=== PATIENT | female | born 1940 | race Caucasian/White ===

== ENCOUNTER 2018-01-11 09:15 | Outpatient (CLI) | payer MEDICARE, SELFPAY ==
--- NOTE | 2018-01-11 10:01 | PC.NURSE ---
PATIENT WAS INSTRUCTED TO RETURN TO [facility] TODAY FOR WOUND RECHECK AND DRESSING CHANGE AFTER LACERATION REPAIR IN ED ON SATURDAY. OLD DRESSING OF BANDAIDS REMOVED. WOUNDS TO LEFT 4TH AND LEFT 5 TH FINGER CLEANED OF OLD DRIED BLOOD WITH HIBICLENS AND STERLIE H2O. WOUNDS THEN DRIED AND REDRESSED WITH TELFA AND MARÍA AND FINGER SPLINT REAPPLIED TO LEFT 4 TH FINGER. INSTRUCTED TO CHANGE DRESSING DAILY AND FOLLOW UP WITH PCP FOR ANY SIGNS OF INFECTION AND SUTURE REMOVAL. VERBALIZED UNDERSTANDING.
== END 2018-01-11 10:06 | disposition home or self-care (01) ==
LOC: UTC.OUT 09:20
PROVIDERS: PCP Internal Medicine; Visit Provider Nurse Practitioner
DX: S61.215D Laceration without foreign body of left ring finger without damage to nail, subsequent encounter (principal); S61.217D Laceration without foreign body of left little finger without damage to nail, subsequent encounter

== ENCOUNTER → 2023-01-02 08:28 | Outpatient (CLI) | payer MEDICARE, SELFPAY ==
[2023-01-02 08:39] LABS: Microscopic, Urine URINE MICROSCOPIC (MICROSCOPIC)
[2023-01-02 09:04] LABS: Basophils # 0.1 K/mm3 (0-0.2); Basophils % 1.2 % (0.1-2.0); Eosinophils # 0.1 K/mm3 (0.0-0.4); Eosinophils % 2.7 % (0.1-12.0); Hematocrit 38.8 % (37.0-47.0); Hemoglobin 12.4 g/dL (12.2-16.2); Lymphocytes # 1.7 K/mm3 (0.7-4.5); Lymphocytes % 37.3 % (10-50); Mean Corpuscular HGB Conc 31.9 g/dL (31.8-35.4); Mean Platelet Volume 7.6 fl (7.4-10.4); Monocytes # 0.4 K/mm3 (0.1-1.0); Monocytes % 9.7 % (1.7-9.3); Neutrophils # 2.3 K/mm3 (1.8-7.8); Neutrophils % 49.1 % (37.0-80.0); Platelet Count 226 K/mm3 (142-424); Red Blood Count 4.13 M/mm3 (4.20-5.40); Red Cell Distribution Width 13.5 % (11.5-17.5); White Blood Count 4.6 K/mm3 (4.8-10.8)
[2023-01-02 09:12] LABS: Appearance,Urine CLEAR (Clear); Bilirubin,Urine Negative (Negative); Blood, Urine 2+ (Negative); Color,Urine YELLOW (Yellow); Glucose,Urine (UA) Negative (Negative); Ketones,Urine Negative (Negative); Leukocyte Esterase,Urine 1+ (Negative); Nitrate,Urine Negative (Negative); Protein,Urine Negative (Negative); Specific Gravity, Urine >= 1.030 (1.005-1.030); Urobilinogen,Urine 0.2 EU/dl (0.2)
[2023-01-02 09:49] LABS: Alanine Aminotransferase 14 U/L (12-78); Albumin Level 3.7 g/dl (3.5-5.0); Albumin/Globulin Ratio 1.5 (1.1-1.8); Alkaline Phosphatase 69 U/L (38-126); Aspartate Amino Transferase 20 U/L (14-36); Bilirubin,Total 0.4 mg/dl (0.2-1.3); Blood Urea Nitrogen 19 mg/dl (7-17); Calcium 8.7 mg/dl (8.4-10.2); Carbon Dioxide 25 mmol/L (22.0-30.0); Chloride 107 mmol/L (98-107); Estimated Glomerular Filt Rate 60 ml/min (>60); GFR (African American) 73 ML/MIN (>60); Globulin 2.5 g/dL (1.3-3.2); Glucose 97 mg/dl (74-100); Sodium 138 mmol/L (136-145); Total Protein,Serum 6.2 g/dl (6.3-8.2)
[2023-01-02 09:57] LABS: Bacteria,Urine 1+ /lpf
[2023-01-02 10:17] LABS: Thyroid Stimulating Hormone 6.01 uIU/mL (0.465-4.68)
== END ==
PROVIDERS: PCP Nurse Practitioner Family; Visit Provider Nurse Practitioner Family
DX: I10 Essential (primary) hypertension (principal); N39.0 Urinary tract infection, site not specified
CPT/HCPCS: 36415; 80053; 81001; 84443; 85025; 87086

== ENCOUNTER 2024-01-29 16:05 | Emergency (ER) | payer MEDICARE, SELFPAY ==
[2024-01-29 16:05] VITALS: BP 152/86; PULSE 72; RESP 18; TEMP 36.7; O2SAT 96; BMI 31.8
--- NOTE | 2024-01-29 17:18 | XR_ITS ---
PROCEDURE INFORMATION: Exam: XR Chest Exam date and time: 01/29/2024 5:28 PM Age: 83 years old Clinical indication: Cough; Additional info: Prdcuctive cough worsening 1 wk TECHNIQUE: Imaging protocol: Radiologic exam of the chest. Views: 2 views. COMPARISON: No relevant prior studies available. FINDINGS: Lungs: A focal 2.5 cm opacity is seen overlying the posterior heart just above the hemidiaphragm on the lateral view only. Lungs are otherwise clear. Pleural spaces: Unremarkable. No pleural effusion. No pneumothorax. Heart/Mediastinum: Unremarkable. No cardiomegaly. Bones/joints: Unremarkable. IMPRESSION: Focal opacity over the posterior heart above the hemidiaphragm on lateral view. This is of uncertain etiology or significance. Findings might reflect summation shadows but developing infiltrate or even a developing nodule or mass cannot be entirely excluded. Advise further assessment with nonemergent chest CT.
--- NOTE | 2024-01-29 17:22 | HMH.EDGENADL ---
Discharge Plan Disposition Patient Disposition: Home, Self-Care Prescriptions Prescriptions: New amoxicillin-pot clavulanate 875-125 mg tablet 1 tab PO BID 5 Days Qty: 10 0RF No Action cholecalciferol (vitamin D3) 25 mcg (1,000 unit) capsule 25 mcg PO DAILY Premarin 0.625 mg tablet 0.625 mg PO DAILY estradiol 0.01 % (0.1 mg/gram) cream 1 appful vaginal DAILY Qty: 42.5 2RF Rx Instructions: insert a blueberry sized amount into the vagina twice weekly pramipexole 0.5 mg tablet 0.5 mg PO TID Patient Comments: TAKE 1 TABLET BY MOUTH THREE TIMES DAILY azithromycin [Zithromax Z-[place]] 250 mg tablet See Rx Instructions PO .COMPLEX Qty: 6 0RF Rx Instructions: For 250 mg dose pack: take 500 mg today (day 1), then 250 mg for 4 days (days 2-5) PO benzonatate 100 mg capsule 100 mg PO BID PRN (Reason: cough) Qty: 20 0RF fluticasone propionate [Allergy Relief (fluticasone)] 50 mcg/actuation spray,suspension 1 spray intranasal DAILY Qty: 16 2RF Rx Instructions: administer into each nostril Referrals Follow up/Referrals: Ricarda Santamaria APRN [Primary Care Provider] - See instructions Activity Restrictions/Add. Instructions Additional Instructions/Restrictions: Follow-up with your family doctor regarding this visit to the emergency department to assure improvement. Talk to them about 2 view chest x-ray versus CT to reevaluate lung opacity after finishing your antibiotics. Clinical Impressions Clinical Impression: Pneumonia Discharge ED Provider: Rocco Lindsey General Adult HPI General Chief complaint: Upper Respiratory Infection Stated complaint: cough, sandoval SOA, Time Seen by Provider: 01/29/24 16:53 Mode of Arrival: Ambulatory Source of Information: Patient Limitations: No Limitations Description of Symptoms (Recalled from ER Triage Doc. by RN): COUGH,CONGESTION,SOA History of Present Illness HPI narrative: Please note that above description of symptoms, in this electronic medical record under categorization of recalled from ER triage doctor by RN are reflective of an initial nursing assessment, however, is not reflective of my full history and physical exam that was personally taken and clarified. Consequentially, this preceding description of symptoms, which may include the patient's categorized chief complaint in the EMR, do not reflect my personal clinical impression, and the ultimate description of history of present illness and patient stated complaints should be deferred to this section of the note. Unless stated otherwise or congruent with this section of the note, additional signs, symptoms, or incongruence should be interpreted as inaccurate with my clinical impression. Related Data Home Medications Medication Instructions Recorded Confirmed cholecalciferol (vitamin D3) 25 25 mcg PO DAILY 05/16/22 01/28/24 mcg (1,000 unit) capsule conjugated estrogens 0.625 mg 0.625 mg PO DAILY 01/23/23 01/28/24 tablet (Premarin) pramipexole 0.5 mg tablet 0.5 mg PO TID 01/28/24 01/28/24 Previous Rx's Medication Instructions Recorded estradiol 0.01% (0.1 mg/gram) 1 appful vaginal DAILY #42.5 grams 10/31/23 vaginal cream azithromycin 250 mg tablet See Rx Instructions PO .COMPLEX #6 01/28/24 (Zithromax Z-[place]) tabs benzonatate 100 mg capsule 100 mg PO BID PRN cough #20 caps 01/28/24 fluticasone propionate 50 1 spray intranasal DAILY #16 grams 01/28/24 mcg/actuation nasal spray,suspension (Allergy Relief (fluticasone)) amoxicillin 875 mg-potassium 1 tab PO BID 5 days #10 tabs 01/29/24 clavulanate 125 mg tablet Allergies Allergy/AdvReac Type Severity Reaction Status Date / Time amoxicillin AdvReac Intermediate nausea Verified 01/28/24 11:21 [facility] Disclaimer: The information contained in this section may have been updated after the patient was seen, as this information can be updated by other users. Medical History History of hypertension Pelvic organ prolapse quantification stage 3 cystocele Surgical History H/O total hysterectomy Family History Other Heart attack Social History Smoking Status: Never smoker second hand exposure: No alcohol intake: never substance use type: denies use current occupational status: retired Travel in the last 8 weeks: None housing: house caffeine: No ROS Obtained: Yes All systems reviewed & no additional complaints except as documented Physical Exam General General appearance: alert and in no apparent distress Head Head exam: atraumatic and normocephalic Eye Eye exam: Present normal appearance, PERRL and EOMI ENT ENT exam: Present mucous membranes moist Neck Neck exam: Present normal inspection, full ROM and trachea midline Respiratory Respiratory exam: Absent respiratory distress, wheezes, stridor, accessory muscle use or prolonged expiratory phase Cardiovascular Cardiovascular exam: Present normal rhythm Abdominal Exam Abdominal exam: Present soft; Absent distention, tenderness, guarding, rebound or rigidity Extremities Exam Extremities exam: Absent edema Neurological Exam Neurological exam: Present alert, oriented X3, CN II-XII intact and normal gait; Absent motor sensory deficit Skin Skin exam: Present warm and dry; Absent diaphoresis or erythema Medical Decision Making Medical Records Medical records reviewed: Yes I reviewed the patient's medical records. Sp Inquiry Pt receiving controlled substance: No Sp was queried for this patient: No Vital Signs: 01/29/24 16:05 Temperature 98.1 F Temperature Source Oral Pulse Rate [Right] 72 Respiratory Rate 18 Blood Pressure [Right Arm] 152/86 H Blood Pressure Mean [Right Arm] 108 02 Sat by Pulse Oximetry 96 Oxygen Delivery Method Room Air Orders (Tests/Meds): ED MEDICATIONS Discontinued Medications Generic Name Dose Route Start Last Admin Trade Name Sinanq PRN Reason Stop Dose Admin Amoxicillin/Clavulanate Potassium 1 each 01/29/24 18:08 01/29/24 18:15 Amoxicillin/Clavulanate Potassium 875/125mg Tablet PO 01/29/24 18:09 1 each ONCE ONE Administration Dexamethasone 10 mg 01/29/24 17:18 01/29/24 17:42 Dexamethasone 4mg Tablet PO 01/29/24 17:19 10 mg ONCE ONE Administration Loratadine 10 mg 01/29/24 17:19 01/29/24 17:42 Loratadine 10mg Tablet PO 01/29/24 17:20 10 mg ONCE ONE Administration ORDERS Category Date Time Status CXR 2 view (NOT portable) [XR chest 2V] Stat Exams 01/29/24 17:18 Completed Medical Decision Narrative: This is an 83-year-old history of hypertension, no other relevant history presenting with nonproductive cough. Patient states that she has had a nonproductive cough for about the last week, it started getting worse yesterday, went to the urgent care. They gave her azithromycin, steroid nasal spray, Tessalon Perles, these have not helped. Patient states that cough feels like it needs to be productive, but has not been able to cough anything up. No fevers or chills, nausea or vomiting, but she does have intermittent shortness of breath secondary to coughing. States that it feels like it is getting worse. istory was obtained via conversation with patient. On arrival, patient hemodynamically stable, alert, oriented x4, appropriate, GCS 15, moving all extremities spontaneously, pupils equal and reactive to light. Full physical exam performed and significant for 83-year-old female she is in no acute distress, but she is intermittently coughing. Lungs are clear to auscultation bilaterally anterior and posteriorly in upper and lower ahumada. Differential includes bronchitis, pneumonia, pneumothorax, among others. Patient was given Decadron and antihistamine p.o. for symptomatic management and correction of underlying abnormalities. Workup independently interpreted and significant for concern for right lower lobe consolidation on chest x-ray. Radiology contacted and said they were concerned for mass, this was relayed to patient. See radiology read for full review of final results. Patient given Augmentin. On reevaluation, patient feeling much better, not coughing. Because patient at baseline without signs or symptoms of clinical decompensation, deemed appropriate for discharge. Results were relayed to patient who voiced understanding and were agreeable to outpatient management and follow up. I discussed my clinical impression with patient and answered all questions. At this time, the evidence for any other entities in the differential is insufficient to warrant any further testing or ED observation. This was explained as well. Advisory was given that persistent or worsening symptoms require further evaluation. I confirmed the understanding of this discussion. Sent home with Augmentin and primary care follow-up. Critical Care Critical Care Time Critical Care Time: No
[2024-01-29] MEDS: DEXAMETHASONE 4MG TABLET 10 MG PO (17:42)
[2024-01-29] MEDS: LORATADINE 10MG TABLET 10 MG PO (17:42)
[2024-01-29] MEDS: AMOXICILLIN/CLAVULANATE POTASSIUM 875/125MG TABLET 1 EACH PO (18:15)
--- NOTE | 2024-01-29 18:33 | PC.NURSE ---
DR RESTREPO AT BEDSIDE
[2024-01-29 18:54] VITALS: BP 153/70; PULSE 76; RESP 18; TEMP 36.7; O2SAT 95
== END 2024-01-29 18:55 | disposition home or self-care (01) ==
PROVIDERS: Emergency Provider Emergency Medicine; PCP Nurse Practitioner Family
DX: J18.9 Pneumonia, unspecified organism (principal); R06.02 Shortness of breath; R05.9 Cough, unspecified
CPT/HCPCS: 71046; 99283

== ENCOUNTER 2024-02-19 06:17 | Outpatient (CLI) | payer MEDICARE, SELFPAY ==
--- NOTE | 2024-02-19 | CT_ITS ---
FINAL REPORT TECHNIQUE: Axial images were obtained from the lung apex to the mid abdomen by computed tomography. Coronal reformatted images were obtained. This study was performed with techniques to keep radiation doses as low as reasonably achievable, (ALARA). Individualized dose reduction techniques using automated exposure control or adjustment of mA and/or kV according to the patient''s size were employed. CLINICAL HISTORY: .abnormal cxr, cough COMPARISON: Chest x-ray 01/29/2024 report only, no images available FINDINGS: There are several borderline sized mediastinal nodes. No mediastinal mass identified. No axillary mass is seen.There is no pericardial or pleural effusion. Mild scarring is noted. There is a calcified granuloma in the right lung base. No pulmonary mass or suspicious nodule is identified. No localized pulmonary inflammatory process is noted. An opacity was noted in the lower thorax on the prior report; however, no mass is identified in the lower thorax on today's study. The chest wall is intact.Limited images of the upper abdomen demonstrate a partially imaged mild left hydronephrosis. IMPRESSION: No mass or localized inflammatory process. Mild left hydronephrosis. Reviewed, Interpreted and Dictated by Chicho Uribe III, MD Transcribed by Michelle Garcia Authenticated and [facility]
[2024-02-19 07:45] LABS: Basophils % 0.9 % (0.1-2.0); Eosinophils # 0.1 K/mm3 (0.0-0.4); Eosinophils % 3.1 % (0.1-12.0); Hematocrit 36.3 % (37.0-47.0); Hemoglobin 11.7 g/dL (12.2-16.2); Lymphocytes # 1.5 K/mm3 (0.7-4.5); Lymphocytes % 36.8 % (10-50); Mean Corpuscular HGB Conc 32.1 g/dL (31.8-35.4); Mean Corpuscular Hemoglobin 30.7 pg (27.0-31.2); Mean Corpuscular Volume 95.5 fl (81-99); Mean Platelet Volume 8.6 fl (7.4-10.4); Monocytes # 0.5 K/mm3 (0.1-1.0); Monocytes % 11.8 % (1.7-9.3); Neutrophils # 1.9 K/mm3 (1.8-7.8); Neutrophils % 47.3 % (37.0-80.0); Platelet Count 299 K/mm3 (142-424); Red Cell Distribution Width 13.8 % (11.5-17.5); White Blood Count 4.1 K/mm3 (4.8-10.8)
[2024-02-19 08:19] LABS: Alanine Aminotransferase 14 U/L (12-78); Albumin Level 3.3 g/dl (3.5-5.0); Albumin/Globulin Ratio 1.3 (1.1-1.8); Alkaline Phosphatase 81 U/L (38-126); Anion Gap 10.4 mEq/L (5-15); Aspartate Amino Transferase 20 U/L (14-36); Bilirubin,Total 0.4 mg/dl (0.2-1.3); Blood Urea Nitrogen 17 mg/dl (7-17); Calcium 9.2 mg/dl (8.4-10.2); Carbon Dioxide 26 mmol/L (22.0-30.0); Chloride 106 mmol/L (98-107); Estimated Glomerular Filt Rate 69 ml/min (>60); GFR (African American) 83 ML/MIN (>60); Globulin 2.5 g/dL (1.3-3.2); Glucose 93 mg/dl (74-100); Potassium 4.4 mmoL/L (3.5-5.1); Sodium 138 mmol/L (136-145); Total Protein,Serum 5.8 g/dl (6.3-8.2)
== END 2024-02-19 23:59 | disposition home or self-care (01) ==
PROVIDERS: PCP Nurse Practitioner Family; Visit Provider Nurse Practitioner Family
DX: R93.89 Abnormal findings on diagnostic imaging of other specified body structures (principal); R05.3 Chronic cough
CPT/HCPCS: 36415; 71250; 80053; 85025

== ENCOUNTER 2024-02-26 14:04 | Outpatient (CLI) | payer MEDICARE, SELFPAY ==
--- NOTE | 2024-02-26 14:09 | US_ITS ---
FINAL REPORT CLINICAL HISTORY: HYDRONEPHROSIS OF LT KIDNEY FINDINGS: The right kidney measures 10.5 cm in length. It is normal in echogenicity. There is no hydronephrosis. There are anechoic structures in the right kidney, largest measures 1.9 cm probably due to benign cysts. The left kidney measures 10.9 cm in length. It is normal in echogenicity. There is mild to moderate left hydronephrosis. The spleen is unremarkable. IMPRESSION: Right renal cysts. [id number] left hydronephrosis. Reviewed, Interpreted and Dictated by Geovanni Hill MD Transcribed by Oxnaa Painter Authenticated and [facility]
== END 2024-02-26 23:59 | disposition home or self-care (01) ==
LOC: RAD 14:05
PROVIDERS: PCP Nurse Practitioner Family; Visit Provider Nurse Practitioner Family
DX: N13.30 Unspecified hydronephrosis (principal)
CPT/HCPCS: 76770

== ENCOUNTER 2024-04-06 16:35 | Outpatient (CLI) | payer MEDICARE, SELFPAY ==
[2024-04-06 16:26] LABS: Microscopic, Urine URINE MICROSCOPIC (MICROSCOPIC)
[2024-04-06 17:43] LABS: Appearance,Urine CLEAR (Clear); Bilirubin,Urine Negative (Negative); Blood, Urine TRACE-I (Negative); Color,Urine YELLOW (Yellow); Glucose,Urine (UA) Negative (Negative); Ketones,Urine Negative (Negative); Leukocyte Esterase,Urine 1+ (Negative); Nitrate,Urine Negative (Negative); PH,Urine 5.5 (5.0-8.5); Protein,Urine Negative (Negative); Specific Gravity, Urine 1.025 (1.005-1.030); Urobilinogen,Urine 0.2 EU/dl (0.2)
[2024-04-06 18:25] LABS: Squamous Epithelial Cell,Urine Occasional #/hpf (0-5); WBC,Urine Occasional #/hpf (0-3)
[2024-04-11 19:08] LABS: Atopobium vaginae Low - 0 Score (.); BVAB2 Low - 0 Score (.); Candida albicans NAA Negative (Negative); Candida glabrata Negative (Negative); Chlamydia Trachomatis NAA Negative (Negative); HSV 1 NAA Negative (Negative); HSV 2 NAA Negative (Negative); Megasphaera 1 Low - 0 Score (.); Neisseria gonorrhoeae NAA Negative (Negative); Trich vag NAA Negative (Negative)
== END 2024-04-06 23:59 | disposition home or self-care (01) ==
LOC: LAB.DROPOF 16:36
PROVIDERS: PCP Urology; Visit Provider Urology
DX: N39.3 Stress incontinence (female) (male) (principal); N89.8 Other specified noninflammatory disorders of vagina
CPT/HCPCS: 81001; 87086; 87491; 87529; 87591; 87661; 87798; 87801

== ENCOUNTER 2024-04-22 09:06 | Outpatient (CLI) | payer MEDICARE, SELFPAY ==
--- NOTE | 2024-04-22 09:06 | CT_ITS ---
FINAL REPORT TECHNIQUE: Pre-and postcontrast axial imaging of the abdomen and pelvis was obtained.This study was performed with techniques to keep radiation doses as low as reasonably achievable, (ALARA). Individualized dose reduction technique using automated exposure control or adjustment of mA and/or kV according to the patient's size were employed. CLINICAL HISTORY: hematuria FINDINGS: The lung bases are clear. The liver is homogeneous. The gallbladder is present. The spleen, adrenal glands, and pancreas are unremarkable. There are multiple left parapelvic renal cysts. There is a cortical cyst in the right kidney. No solid mass is identified. On precontrast imaging, no renal stones are identified. Abdominal GI tract is unremarkable. There is no lymphadenopathy or ascites. There is no evidence of small-bowel obstruction or focal small bowel wall thickening. The appendix is not visualized but there are no secondary findings to suggest appendicitis. The uterus is absent. Pessary device is noted. There is no lymphadenopathy or ascites. No acute osseous abnormalities identified. IMPRESSION: No stone or solid renal mass. Bilateral renal cysts. Reviewed, Interpreted and Dictated by Shelby Mathew MD Transcribed by Oxana Painter Authenticated and [facility]
[2024-04-22 09:41] LABS: Blood Urea Nitrogen 16 mg/dl (7-17); Estimated Glomerular Filt Rate 69 ml/min (>60); GFR (African American) 83 ML/MIN (>60)
== END 2024-04-22 23:59 | disposition home or self-care (01) ==
LOC: RAD 09:06
PROVIDERS: PCP Nurse Practitioner Family; Visit Provider Urology
DX: R31.9 Hematuria, unspecified (principal)
CPT/HCPCS: 36415; 74178; 82565; 84520; Q9967

== ENCOUNTER 2024-04-27 11:01 | Outpatient (CLI) | payer MEDICARE, SELFPAY ==
[2024-04-27 15:44] LABS: Microscopic, Urine URINE MICROSCOPIC (MICROSCOPIC)
[2024-04-27 16:01] LABS: Appearance,Urine TURBID (Clear); Bilirubin,Urine Negative (Negative); Blood, Urine TRACE-I (Negative); Color,Urine YELLOW (Yellow); Glucose,Urine (UA) Negative (Negative); Ketones,Urine Negative (Negative); Leukocyte Esterase,Urine Negative (Negative); Nitrate,Urine Negative (Negative); PH,Urine 5.5 (5.0-8.5); Protein,Urine Negative (Negative); Specific Gravity, Urine 1.025 (1.005-1.030); Urobilinogen,Urine 0.2 EU/dl (0.2)
[2024-04-27 16:32] LABS: Bacteria,Urine 4+ /lpf; Calcium Oxalate Crystals,Urine 1+ /lpf; RBC,Urine Occasional #/hpf (0-3); WBC,Urine Occasional #/hpf (0-3)
== END 2024-04-27 23:59 | disposition home or self-care (01) ==
LOC: LAB.DROPOF 04-28 11:02
PROVIDERS: PCP Urology; Visit Provider Urology
DX: R31.9 Hematuria, unspecified (principal)
CPT/HCPCS: 81001; 87086

== ENCOUNTER 2024-06-04 15:18 | Outpatient (CLI) | payer MEDICARE, SELFPAY ==
--- NOTE | 2024-06-04 15:24 | XR_ITS ---
FINAL REPORT CLINICAL HISTORY: Acute left knee pain FINDINGS: LEFT KNEE 3 views were obtained. There is no acute fracture or dislocation. There is chondrocalcinosis. There is sharpening of the tibial spine. A small osteophyte is seen along the undersurface of the patella. A calcification along the posterior aspect of the joint capsule is probably dystrophic. IMPRESSION: Degenerative changes with no acute bony abnormality. Calcification along the posterior aspect of the joint capsule is probably dystrophic. No prior images are available for comparison. Consider CT or MRI for further evaluation. Reviewed, Interpreted and Dictated by Geovanni Hill MD Transcribed by Meena Clifton Authenticated and . [facility]
== END 2024-06-04 23:59 | disposition home or self-care (01) ==
LOC: RAD 15:20
PROVIDERS: PCP Internal Medicine Adolescent Medicine; Visit Provider Nurse Practitioner Family
DX: M25.562 Pain in left knee (principal)
CPT/HCPCS: 73562

== ENCOUNTER 2024-06-29 15:18 | Outpatient (CLI) | payer MEDICARE, SELFPAY ==
--- NOTE | 2024-06-29 | MR_ITS ---
FINAL REPORT CLINICAL HISTORY: POSTERIOR KNEE PAIN COMPARISON: None FINDINGS: Articular cartilage: There is mild diffuse thinning of the articular cartilage without evidence of a focal osteochondral defect. Marrow signal: There is a benign cyst in the subcortical medial tibial metaphysis. There is an insertional cyst in the proximal tibia near the PCL attachment. Joint fluid: Small with a moderate-sized Bakers cyst. Menisci: There is a moderate oblique tear of the posterior horn of the medial meniscus. Lateral meniscus is intact. Ligaments: Collateral and cruciate ligaments intact No abnormal enhancement is noted after contrast administration. IMPRESSION: Moderate oblique tear of the posterior horn of the medial meniscus. Lateral meniscus is intact. Mild diffuse thinning of the articular cartilage without a focal defect. Small joint effusion with a moderate-sized Elder's cyst. Reviewed, Interpreted and Dictated by Quyen Patel MD Transcribed by Noemi Bishop Authenticated and [facility]
[2024-06-29 15:50] LABS: Blood Urea Nitrogen 21 mg/dl (7-17); Estimated Glomerular Filt Rate 36 ml/min (>60); GFR (African American) 43 ML/MIN (>60)
[2024-06-29] MEDS: SODIUM CHLORIDE 0.9% 10ML SYR (RAD ONLY) 10 ML IV (18:10)
[2024-06-29] MEDS: GADOTERIDOL INJ 10ML SYRINGE 10 ML IV (18:10)
== END 2024-06-29 23:59 | disposition home or self-care (01) ==
LOC: RAD 15:18
PROVIDERS: PCP Internal Medicine Adolescent Medicine; Visit Provider Internal Medicine Adolescent Medicine
DX: M25.562 Pain in left knee (principal)
CPT/HCPCS: 36415; 73723; 82565; 84520; A9576

== ENCOUNTER 2024-07-14 08:00 | Outpatient (RCR) | payer MEDICARE, SELFPAY ==
--- NOTE | 2024-07-08 10:26 | HMH.PTOPEV ---
PT Outpatient Evaluation Rehab PT Outpatient Evaluation Start: 07/08/24 09:08 Freq: Status: Active Protocol: Document 07/08/24 10:07 GABY (Rec: 07/08/24 10:26 CORNELLHECTOR [id number]) E-signed By Andrei Pearce, PT Outpatient Therapy Subjective History Subjective History Patient is an 83 year old female presenting to outpatient PT with reports of L knee pain starting approx 2 months ago. Symptoms of insidious onset. Most recent imaging indicates PMM tear and Bakers cyst. No other comorbidities to report. New diagnosis of cancer in past 12 No months? Chief Complaint Pain,Stiff Symptom Type Dull Symptoms Relieved By Rest/Positioning,Ice,Elevation Symptoms Aggravated By Standing,Physical Activity, Walking Prior Functional Limitations None Current Functional Limitations Housework,Standing,Squatting, Recreation Activity,Walking, Stairs,Balance Symptom Description Constant but Variable Level of pain today (0-10) 3 Pain scale - at its best (0-10) 2 Pain scale - at its worst (0-10) 7 Hip/Knee Eval MMT left Hip Flexion Strength Grade 5 Normal Hip Abduction Strength Grade 5 Normal Hip Adduction Strength Grade 4 Good Hip Extension Strength Grade 4 Good Hip External Rotation Strength Grade 4 Good Hip Internal Rotation Strength Grade 4 Good Knee Extension Strength Grade 4 Good Knee Flexion Strength Grade 5 Normal ROM Hip ROM Reason Not Measured Within Functional Limits Knee Extension Active Range of Motion ( -5 degrees) Knee Flexion Active Range of Motion ( 114 degrees) Special Tests Knee Anterior Linda Test Negative Left Knee Pivot Shift Test Negative Left Knee Valgus Stress Test Negative Left Knee Varus Stress Test Negative Left Knee Devon Test Positive Left Lower Extremity Functional Index Activities Today, do you or would you have any difficulty at all with: a.Any of your usual work, housework or No difficulty school activities b. Your usual hobbies, recreational or No difficulty sporting activities c. Getting into or out of the bath No difficulty d. Walking between rooms No difficulty e. Putting on your shoes or socks No difficulty f. Squatting Moderate difficulty g. Lifting an object, like a bag of No difficulty groceries from the floor h. Performing light activities around No difficulty your home i. Performing heavy activities around No difficulty your home j. Getting into or out of a car Moderate difficulty k. Walking 2 blocks No difficulty l. Walking a mile Moderate difficulty m. Going up or down 10 stairs (about 1 Moderate difficulty flight of stairs) n. Standing for 1 hour Moderate difficulty o. Sitting for 1 hour No difficulty p. Running on even ground Extreme difficulty or unable to perform activity q. Running on uneven ground Extreme difficulty or unable to perform activity r. Making sharp turns while running fast Extreme difficulty or unable to perform activity s. Hopping Extreme difficulty or unable to perform activity t. Rolling over in bed No difficulty LEFI Score Lower Extremity Functional Index Score 54 Outpatient Therapy Assessment Impairments Problems/Impairmments Palpation Tenderness,Impaired Range of Motion,Impaired Strength,Impaired Walking, Impaired Standing,Impaired Household Care,Impaired Stair Climbing,Impaired Incline Stepping,Impaired Squatting, Impaired Recreational Activities,Impaired Work Activities,Impaired Balance, Subjective C/O Pain Prognosis Rehab Potential Good Clinical Impression Consistent with Diagnosis Yes Short Term Goals Number of Weeks 2 Decrease Subjective C/O Pain Yes: 5/10 at worst Patient to be Ind w/ HEP Yes Flatcar Whacker Goals Number of Weeks 4-6 Decreased Palpation Tenderness Yes: 1/4 Increase Range of Motion Yes: 0-120 Increase Strength Yes: 5/5 LLE Increase Ability to Walk Yes: 30 min without difficulty Increase Ability to Stand Yes: Improve Ability For Household Care Yes Return to Recreational Activities Yes Improve Tolerance to Work Activities Yes Improve LEFI Score Yes: >70 Outpatient Therapy Plan of Care Treatment Plan May Include Therapeutic Exercise Including Home Yes Exercise Program Manual Therapy Techniques Yes Neuromuscular Re-education Yes Therapeutic Activities to Return to Yes Previous Functional/Work Level Gait Training Yes ADL/Self Care Education Yes Dry Needling Yes Thermal Modalities Yes Electrical Stimulation Yes Ultrasound/Phonophoresis Yes Iontophoresis Yes Orthotics/Bracing/Splinting Yes Vasopneumatic Compression Pump Yes Massage Yes Manual Lymphatic Drainage Yes Eval/Re-Eval Yes Frequency Times per week 2-3 Duration Number of Weeks 4-6 Addendums This patient is a candidate for social No or vocational rehab? Patient/Guardian verbally acknowledges Yes understanding of treatment program and consents to further treatment? Patient/Guardian verbally acknowledges Yes understanding of diagnosis, prognosis and goals for treatment? Eval Complexity PT Charges 52850 - Moderate Complexity Shoulder/Elbow Eval Shoulder Objective Measurements Elbow Objective Measurements PHYSICIAN CERTIFICATION: I certify the specified therapy services for Crystal Arabella Elder are required, authorized, and reviewed every 30 days.
== END 2024-07-14 08:05 | disposition home or self-care (01) ==
LOC: PT 08:00
PROVIDERS: Visit Provider Nurse Practitioner Family
DX: M25.562 Pain in left knee (principal); M71.22 Synovial cyst of popliteal space [Baker], left knee; S83.242A Other tear of medial meniscus, current injury, left knee, initial encounter
CPT/HCPCS: 97035; 97110; 97163

== ENCOUNTER 2025-08-23 13:31 | Outpatient (CLI) | payer MEDICARE, SELFPAY ==
--- NOTE | 2025-08-23 | CA_ITS ---
FINAL REPORT TECHNIQUE: Color Doppler, duplex Doppler and azul scale sonography of the bilateral neck arterial vasculature was performed. Velocities were measured in the carotid arteries. Stenosis evaluation based on the validated velocity criteria. CLINICAL HISTORY: HTN, slurred speech FINDINGS: The peak systolic velocity of the right common carotid artery is 169 cm/s. The peak systolic velocity of the right internal carotid artery is 96 cm/s and end diastolic velocity 34 cm/s. The ICA/CCA ratio is 1.3. A mild amount of plaque is present. The right external carotid artery is patent. The right vertebral artery is patent with antegrade flow. The peak systolic velocity of the left common carotid artery is 79 cm/s. The peak systolic velocity of the left internal carotid artery is 85 cm/s and end diastolic velocity 27 cm/s. The ICA/CCA ratio is 1.1. A mild amount of plaque is present. The left external carotid artery is patent.The left vertebral artery is patent with antegrade flow. IMPRESSION: Less than 50% bilateral carotid stenoses. Bilateral patent vertebral arteries with antegrade flow. If indicated, CTA or MRA could further evaluate. Reviewed, Interpreted and Dictated by Geovanni Hill MD Transcribed by Michelle Garcia Authenticated and [facility]
--- NOTE | 2025-08-23 13:34 | MR_ITS ---
FINAL REPORT CLINICAL HISTORY: HTN, HEADACHE AND SPEECH DISTURBANCE. r/o tia FINDINGS: Multiplanar MR imaging of the brain was performed without and with contrast. There is moderately advanced cortical atrophy. There is a defect in the anterior body of the corpus callosum seen on image 15 of series 2. There is localized encephalomalacia and surrounding gliosis superior to the anterior right lateral ventricle seen on image 14 of series 8 and image 18 of series 5.There is no evidence of intracranial hemorrhage or mass. No abnormal extra-axial fluid collection is seen. The ventricular size is within normal limits. There is no evidence of shift of the midline structures. The posterior fossa and brainstem have an unremarkable appearance. No area of abnormal restricted diffusion is identified. No abnormal contrast enhancement is seen. Normal major vessel vascular flow voids are noted. IMPRESSION: No acute intracranial abnormality identified. 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 Moderately advanced cortical atrophy. Reviewed, Interpreted and Dictated by Geovanni Hill MD Transcribed by Maria G Aguila Authenticated and [facility]
[2025-08-23 14:06] LABS: Blood Urea Nitrogen 23 mg/dl (7-17); Creatinine,Serum 1.20 mg/dl (0.52-1.04); Estimated Glomerular Filt Rate 43 ml/min (>60); GFR (African American) 52 ML/MIN (>60)
[2025-08-23] MEDS: GADOTERIDOL INJ 20ML SYRINGE 12 ML IV (14:25)
[2025-08-23] MEDS: SODIUM CHLORIDE 0.9% 10ML SYR (RAD ONLY) 10 ML IV (14:25)
--- OUTSIDE RECORDS SUMMARY | 2025-08-23 20:11 | XMS_ITS | Data Portability ---
Author Organization [facility] Address [address] [facility] [address] [place] [address] Care Team Providers Care Fly Maker Name Role Phone HOWARD QUESADA Kiln Placer Assessment No assessment recorded. Plan of Treatment Reminders Order Date Submit Date Provider Last Modified By Organization Details Last Modified Time Details Appointments HEARING AID ADJUSTMEN TS ENT 2024 09:30A M HERBERT MEJIA ING AUD Not available Not available Not available HEARING AID ADJUSTMEN ENT 2025 09:00A M HERBERT MEJIA ING AUD Not available Not available Not available Lab None recorded. Referral None recorded. Procedures None recorded. Surgeries None recorded. Imaging None recorded. Medication Orders None recorded. Patient TargetsNo targets recorded. Patient Instructions Encounter Date Encounter Id Patient Instructions Last Modified By Organization Details Last Modified Time 05/22/2023 [id number] 6 month hearing aid check. Patient reports no complaints from both aids. Pt got a new phone, needs HAs paired to new phone. Problem identified: none The wax traps and domes were replaced and the aids were placed in the dehumidifier. Listening check was good for both aids, no distortion or weakness was detected. Recommendations: Return in 6 months for another hearing aid check or sooner if problems arise. [email or web address] Not available 05/22/2023 09:54:03 11/27/2023 [id number] 6 month hearing aid check. Patient reports no complaints from both aids. Problem identified: none The wax traps and domes were replaced and the aids were placed in the dehumidifier. Listening check was good for both aids, no distortion or weakness was detected. The patient is to return in 6 months for another hearing aid check or sooner if problems arise. [email or web address] Not available 11/27/2023 11:38:49 05/27/2024 [id number] 6 month hearing aid check. Patient reports weak sound from both aids. Problem identified: none The wax traps and domes were replaced and the aids were placed in the dehumidifier. Listening check was good for both aids, no distortion or weakness was detected. Recommendations: Return in 6 months for another hearing aid check or sooner if problems arise. Pt requested updated audio at that time. [email or web address] Not available 05/27/2024 11:24:12 12/02/2024 [id number] Audiological evaluation today revealed a mild to moderate sensorineural hearing loss in the right ear with good speech discrimination abilities. A mild to moderate sensorineural hearing loss with fair speech discrimination abilities were noted in the left ear. There is no significant difference for speech discrimination abilities or pure tone responses between the ears. There has been a slight reduction in thresholds for both ears in reference to the previous evaluation. 6 month hearing aid check. Patient reports no complaints from both aids. Problem identified: none The wax traps and domes were replaced and the aids were placed in the dehumidifier. Reprogrammed HAs to current audiological evaluation. Listening check was good for both aids, no distortion or weakness was detected. Recommendations: 1. Continue to monitor HL 2. Return in 6 months for another hearing aid check or sooner if problems arise. [email or web address] Not available 12/02/2024 11:46:20 Reason for Referral None Reported. Problems Name Problem SNOMED Code Status Onset Date Resolution Date Notes Provider Name and Address Organization Details Recorded Time Restless legs syndrome 37750346 Active 2015 From Automated Load;Provi shalonda: Elizabeth West: Active Not Available [facility] 6 04:12:01 Menopause present 078368618 Active 2015 From Automated Load;Provi shalonda: Elizabeth West: Active Not Available [facility] 6 04:12:01 Problem Notes None recorded. Procedures Surgical History Date Name Laterality Status Provider Name and Address Organization Details Recorded Time Audiogram completed GABRIELA SHEPHERD, AUD [address] [place], [address], [facility] 12/02/2024 11:39:25 9 Cerumen removal - Instruments, Unilateral completed HOWARD QUESADA MD [address] [place] [address], [phone] 07/01/2019 12:06:06 8 Cerumen removal - Instruments, Unilateral completed HOWARD QUESADA MD [address] [place] [address], [phone] 12/25/2017 10:48:27 Imaging Results None recorded. Procedure Notes None recorded. Medical Equipment None Reported. Allergies Allergen ID Allergen Name Allergen Category Reaction Reaction Severity Criticality Documentation Date Start Date Code Code System Note Provider Name and Address Organization Details Recorded Time 16900407 Amoxil medicatio n other Not available Not available 08/30/20162006 9 RxNorm React ion: OTHER ; Comme nt: spencer alaniz By: Jason edgar Date: 2006 11:27 :39 AM; Not Available [facility] 6 11:31:13 Medications Name Sig Start Date Stop Date Status Note LastModified by Organization Details LastModified Time folic acid 400 mcg tablet Daily 11/12 completed Duration : 30 days;Sinan quency: daily;Me dication Descript ion: folic acid; Dosage:4 ; Route:or al; refills: 0; Quantity :30 tablet Not Available Not Available Not Available omeprazol e 40 mg capsule,d elayed release take 1 capsule by mouth once daily 2018 active Not Available Not Available Not Avai lable pramipexo le 0.5 mg tablet TAKE 1 TABLET BY MOUTH THREE TIMES A DAY 2020 active Not Available Not Available Not Avai lable meloxicam 7.5 mg tablet Take 1 tablet every day by oral route. 09/10 completed Not Available Not Available Not Available gabapenti n 100 mg capsule 1-2 po qhs prn 2018 active Not Available Not Available Not Avai lable Premarin 0.625 mg tablet Take 1 tablet every day by oral route. 2020 active through [facility] Not Available Not Available Not Available Lortab 5 mg-325 mg tablet Take 1 tablet twice a day by oral route as needed. 2014 active Frequenc y: bid;Alt Frequenc y: prn pain;Med ication Descript ion: acetamin ophen-hy drocodon e; Dosage:1 ; Route:or al; refills: 0; Quantity :30 tablet Not Available Not Available Not Available Vitals None Recorded Social History Question Answer Notes LastModified by Organizat ion Details LastModified Time Tobacco Smoking Status Never Smoker Louise Harris [facility] 12/25/2017 10:41:57 What Was The Date Of Your Most Recent Tobacco Screening? 11/12/2018 8 Information not available 11/24/2019 How Much Tobacco Do You Smoke? No Information not available 12/25/2017 Has Tobacco Cessation Counseling Been Provided? No Information not available 12/25/2017 Sex: Unknown Functional Status Question Answer Note LastModified by Organizat ion Details LastModified Time What is your level of alcohol consumption? None Information not available 12/25/2017 Do you or have you ever used smokeless tobacco? Never used smokeless tobacco Information not available 09/10/2019 Do you or have you ever used e-cigarettes or vape? Never used electronic cigarettes Information not available 09/10/2019 Mental Status None recorded. Family History Nothing Reported. Medical History No medical history recorded. Gynecological HistoryNo gynecological history recorded. Obstetrics History GPAL:G 0 P 0 0 0 0 Immunizations Vaccine Type Date Status Note Provider Nam e and Address Organization Details Recorded Time Td (adult) 01/09/2018 completed Not Available [facility] 06/02/2025 09:44:11 Hep A, adult 09/18/2018 completed Not Available [facility] 06/02/2025 09:44:11 Hep A, adult 03/19/2019 completed Not Available [facility] 06/02/2025 09:44:11 COVID-19, mRNA, LNP-S, PF, 30 mcg/0.3 mL dose 12/29/2020 completed Not Available [facility] 09:44:11 COVID-19, mRNA, LNP-S, PF, 30 mcg/0.3 mL dose 01/26/2021 completed Not Available [facility] 5 09:44:11 Past Encounters Encounter ID Performer Location Encounter Start Date Encounter Closed Date Diagnosis/Indication Diagnosis SNOMED-CT Code Diagnosis ICD10 Code Diagnosis IMO Codes Diagnosis Note [id number] HOWARD QUESADA MD [facility] [address] [place] [address] 1 12/25/2017 10:16:47 12/25/2017 11:36:34 Impacted cerumen in right ear 7930441849 494652 H61.21 removed Sensorineu ral hearing loss of bilateral ears 609663229 H90.3 symmetric. audio reviewed. probably age related. Recent noise trauma could be an etiology as well. I recommend she follow up with her audiologis t to consider hearing aids. [id number] KARIE PAIZ [facility] [address] [place] [address] 1 12/25/2017 10:47:46 12/25/2017 12:44:23 Sensorineural hearing loss of bilateral ears 620265232 H90.3 [id number] TIRSO WETS PA-C [facility] [place] [address] 1 04/07/2018 08:01:52 04/07/2018 08:43:19 Postmenopausal state 97807613 Z78.0 Adult [facility] th examination 116084345 Z00.00 Declines pneumonia vaccine. Had recent mammogram - normal. Follow up one year. Restless l egs syndrome 86137474 G25.81 [id number] TIRSO WEST PA-C [facility] [place] [address] 1 11/12/2018 07:52:20 11/19/2018 07:56:17 Myalgia/myositis - multiple 207758685 M79.10 Await results. Low back pain 540791159 M54.5 Restless l egs syndrome 44968712 G25.81 Heartburn 62396538 R12 [id number] KARIE PAIZ [facility] [address] [place] [address] 1 11/12/2018 07:56:37 11/12/2018 16:18:40 Sensorineural hearing loss of bilateral ears 861731961 H90.3 [id number] [place] [address] [place] [id number] 11/12/2018 10:17:03 11/12/2018 16:20:51 [id number] GABRIELA SHEPHERD AUD ENT [facility] [address] [place] [address] 12/12/2018 08:12:35 12/12/2018 10:20:36 [id number] GABRIELA SHEPHERD AUD ENT [facility] [address] [place] [address] 1 12/26/2018 08:26:28 12/26/2018 08:39:44 [id number] GABRIELA SHEPHERD AUD ENT [facility] [address] [place] [address] 1 07/01/2019 10:58:13 07/01/2019 14:03:16 [id number] HOWARD QUESADA MD ENT [facility] [address] [place] [address] 1 07/01/2019 11:38:53 07/02/2019 14:42:28 Sensorineural hearing loss of bilateral ears 387154476 H90.3 review his audiogram reviewed. Continue hearing aids Impacted c erumen in right ear 9698960430 885710 H61.21 removed [id number] TIRSO WEST PA-C [facility] [address] [address] 09/10/2019 09:31:49 10/12/2019 09:38:05 Adult health examination 394156868 Z00.00 Declines pneumonia vaccine. Osteoarthritis 850872064 M19.90 Menopause present 363498 006 N95.1 Screening for malignant neoplasm of breast 367286904 Z12.31 [id number] GABRIELA SHEPHERD AUD ENT [facility] [address] [place] [id number] 12/14/2020 13:46:08 12/14/2020 14:37:20 [id number] GABRIELA SHEPHERD AUD ENT [facility] [address] [place], [place] [address] 12/28/2022 10:47:04 12/28/2022 11:18:52 [id number] GABRIELA SHEPHERD AUD ENT [facility] [address] [place], [place] [address] 05/22/2023 09:19:50 05/22/2023 09:56:08 [id number] MATILDELESLIE GUERRA ENDY, MS ENT [address] [place] [address] 1 11/27/2023 10:54:48 11/27/2023 11:39:17 [id number] GABRIELA SHEPHERD, AUD ENT [address] [place] [address] 1 05/27/2024 10:25:45 05/27/2024 11:37:51 [id number] GABRIELA [place], [place] [address] [place] [address] 1 12/02/2024 10:57:47 12/02/2024 13:03:31 Sensorineural hearing loss of bilateral ears 080476011 H90.3 [id number] BUCK [place], [place] [address] [place] [address] 1 06/02/2025 09:42:43 06/02/2025 10:21:59 Health Concerns Section Related Observation LastModified by Organization Detai ls LastModified Time None Recorded Concern Status LastModified by Organization Details LastModified Time None Recorded Advance Directives Directive None Recorded Payers Insurance Date Sequence Insurance Name Policy Number Policy Riley Covered Member ID Riley Member ID Guarantor Name 06/02/2025 1 [facility] (MEDICARE REPLACEMENT/ ADVANTAGE - PPO) [id number] Demi Elder [id number] Demi Elder 06/02/2025 [employer] Crystal Garry Elder [id number] Demi Elder 06/02/2025 [employer] Demi Elder [id number] Demi Elder 06/02/2025 1 [employer] (MEDICARE REPLACEMENT/ ADVANTAGE - PPO) Crystal Garry Elder [id number] Demi I Jael 06/02/2025 2 [place] [place]/TRADITIO NAL Demi Elder [id number] Demi Elder 06/02/2025 1 [facility] (MEDICARE REPLACEMENT/ ADVANTAGE - PPO) Demi Elder [id number] Demi Elder 06/02/2025 2 [employer] (MEDICARE REPLACEMENT/ ADVANTAGE - PPO) [id number] Demi Elder [id number] Demi Elder 06/02/2025 GENERIC INSURANCE - MOVED-HOLD Demi Elder Notes Date Note Type Note Provider Name and Address Organization Details Recorded Time 05/22/2023 text/html regular HAC - new phone (BT pairing) GABRIELA SHEPHERD, AUD [address] [place], [address], [facility] 05/22/2023 09:54:06 05/27/2024 text/html 6mo HAC GABRIELA SHEPHERD, AUD [address] [place], [address], [facility] 05/27/2024 11:24:16 12/02/2024 text/html Hearing Evaluati on - AdultReported by PatientHPIFor onset/timing, patient reportslong standing. For location, patient reportsbilateral. For quality, patient reportsdecreased. For context, patient reportsprevious hearing evaluation (2019 mild to moderate snhl au)andwears hearing aid good outcome (phonak audeo m70 r (2019))but reportsno history of occupational noise exposure,no history of recreational noise exposure,no family history of hearing loss,no history of heart disease,no history of kidney disease,no history of chemotherapy,no history of stroke, andno history of diabetes. For severity, patient reportsno difficulty understanding speech with hearing aid in place. GABRIELA SHEPHERD, AUD [address] [place], [address], [facility] 12/02/2024 13:03:01 OBGyn Episode No OBEpisode recorded.
== END 2025-08-23 23:59 | disposition home or self-care (01) ==
LOC: RAD 13:32
PROVIDERS: PCP Internal Medicine Adolescent Medicine; Visit Provider Nurse Practitioner Family
DX: I65.23 Occlusion and stenosis of bilateral carotid arteries (principal); G31.89 Other specified degenerative diseases of nervous system; I10 Essential (primary) hypertension; R51.9 Headache, unspecified; R47.81 Slurred speech
CPT/HCPCS: 36415; 70553; 82565; 84520; 93880; A9576